=== PATIENT | female | born 1985 | race Caucasian/White ===

== ENCOUNTER 2021-12-13 08:54 | Emergency (ER) | payer MEDICAID ==
[~2021-12-13] VITALS: Ht 165.1 cm; Wt 60.0 kg
[2021-12-13 09:10] VITALS: BP 115/66
[2021-12-13] MEDS ORDERED: IBUPROFEN 600MG TABLET PO ONE (09:45)
== END 2021-12-13 10:51 | disposition home or self-care (01) ==
LOC: ER 08:54
DX: M79.642 Pain in left hand (principal); M79.672 Pain in left foot; V43.52XA Car driver injured in collision with other type car in traffic accident, initial encounter; Y93.89 Activity, other specified; Y92.488 Other paved roadways as the place of occurrence of the external cause
CPT/HCPCS: 73130; 73630; 99284